=== PATIENT | female | born 1965 | race Hispanic/Latino ===

== ENCOUNTER 2024-05-26 15:39 | Inpatient (IN) | payer SELFPAY ==
[~2024-05-26 15:39] MED LIST: Iopamidol-370 76% 500 ML MDV (1 ML CHARGE) ONE
[2024-05-26 16:40] LABS: #Basophils 0.04 10x3/uL (0.0-0.2); %Basophils 0.6 % (0.0-1.0); %Eosinophils 0.9 % (0.0-10.0); %Lymphocytes 23.1 % (21.0-51.0); %Monocytes 8.7 % (0.0-10.0); %Neutrophils 66.4 % (42.0-75.0); Hematocrit 45.3 % (36.0-47.0); Hemoglobin 14.5 g/dL (12.0-16.0); Mean Corpuscular Hemoglobin 29.5 pg (27.0-31.0); Mean Corpuscular Volume 92.3 fL (78.0-98.0); Mean Platelet Volume 11.2 fL (7.4-10.4); Platelet Count 275 10x3/uL (130-400); RBC Distribution Width 14.6 % (11.5-14.5); Red Blood Cell (RBC) Count 4.91 mill/uL (4.20-5.40)
[2024-05-26 17:05] LABS: ALT (SGPT) 810 U/L (8-55); AST (SGOT) 473 U/L (5-34); Albumin 3.7 g/dL (3.5-5.0); Alkaline Phosphatase 241 U/L (40-110); Anion Gap 13 mmol/L (10-20); BUN (Urea Nitrogen) 15 mg/dL (9.8-20.1); Bilirubin, Total 2.4 mg/dL (0.2-1.2); Calc. Creatinine Clearance 0 mL/min (70-130); Calcium 10.4 mg/dL (7.8-10.44); Carbon Dioxide 25 mmol/L (22-29); Chloride 107 mmol/L (98-107); Estimated GFR 85; Globulin 5.3 g/dL (2.4-3.5); Glucose 121 mg/dL (70-105); Lipase 67 U/L (8-78); Potassium 3.8 mmol/L (3.5-5.1); Sodium 141 mmol/L (136-145)
[2024-05-26 17:11] LABS: Troponin I Less than 0.010 ng/mL (< 0.028)
[2024-05-26] MEDS ORDERED: Acetaminophen 325 MG TAB PO PRN (18:39)
[2024-05-26] MEDS ORDERED: Ondansetron PF 4 MG/2 ML Vial IVP PRN (18:39)
[2024-05-26] MEDS ORDERED: Ipratropium/Albuterol 3 ML NEB NEB PRN (18:39)
[2024-05-26] MEDS ORDERED: Piperacillin/Tazobactam 4.5 GM VIAL ONE (18:56)
[2024-05-26] MEDS ORDERED: Sodium Chloride 0.9% 100 ML ONE (18:56)
[2024-05-26 20:33] VITALS: BMI 28.6
[2024-05-26] MEDS: Sodium Chloride 0.9% 1,000 ML IV SCH (22:55)
[2024-05-26] MEDS: Ketorolac Tromethamine 30 MG (1 mL) VIAL IVP SCH (23:02)
[2024-05-26] MEDS: Famotidine/PF 20 mg/2ml Vial SLOW IVP SCH (23:03)
[2024-05-27] MEDS: Piperacillin/Tazobactam 3.375 GM in Sodium Chloride 0.9% 100 ML IVPB SCH (01:24)
[2024-05-27 05:04] LABS: #Basophils 0.03 10x3/uL (0.0-0.2); %Basophils 0.6 % (0.0-1.0); %Eosinophils 1.8 % (0.0-10.0); %Lymphocytes 41.3 % (21.0-51.0); %Monocytes 10.7 % (0.0-10.0); %Neutrophils 45.4 % (42.0-75.0); Hematocrit 39.6 % (36.0-47.0); Hemoglobin 12.6 g/dL (12.0-16.0); Mean Corpuscular HGB CONC 31.8 g/dL (32.0-36.0); Mean Corpuscular Hemoglobin 29.5 pg (27.0-31.0); Mean Corpuscular Volume 92.7 fL (78.0-98.0); Platelet Count 230 10x3/uL (130-400); RBC Distribution Width 14.7 % (11.5-14.5); Red Blood Cell (RBC) Count 4.27 mill/uL (4.20-5.40)
[2024-05-27 05:36] LABS: ALT (SGPT) 784 U/L (8-55); AST (SGOT) 453 U/L (5-34); Alkaline Phosphatase 220 U/L (40-110); Anion Gap 10 mmol/L (10-20); BUN (Urea Nitrogen) 12 mg/dL (9.8-20.1); Bilirubin, Total 1.9 mg/dL (0.2-1.2); Calc. Creatinine Clearance 91 mL/min (70-130); Calcium 9.1 mg/dL (7.8-10.44); Carbon Dioxide 24 mmol/L (22-29); Chloride 110 mmol/L (98-107); Estimated GFR 92; Glucose 109 mg/dL (70-105); Potassium 3.2 mmol/L (3.5-5.1); Protein, Total 7.4 g/dL (6.0-8.3); Sodium 141 mmol/L (136-145)
[2024-05-27 05:39] LABS: Prothrombin Time 13.4 sec (12.0-14.7)
[2024-05-27 05:40] LABS: PTT 23.8 sec (22.9-36.1)
[2024-05-27] MEDS: Ketorolac Tromethamine 30 MG (1 mL) VIAL IVP SCH (05:50)
[2024-05-27] MEDS: Potassium Chloride 20 MEQ in Premix 1 BAG IVPB SCH (13:37)
[2024-05-28 04:52] VITALS: TEMP 98.3
[2024-05-28 05:31] LABS: #Basophils 0.04 10x3/uL (0.0-0.2); %Basophils 0.7 % (0.0-1.0); %Eosinophils 3.5 % (0.0-10.0); %Lymphocytes 42.9 % (21.0-51.0); %Monocytes 9.1 % (0.0-10.0); %Neutrophils 43.4 % (42.0-75.0); Hematocrit 40.7 % (36.0-47.0); Hemoglobin 13.2 g/dL (12.0-16.0); Mean Corpuscular HGB CONC 32.4 g/dL (32.0-36.0); Mean Corpuscular Hemoglobin 29.3 pg (27.0-31.0); Mean Corpuscular Volume 90.4 fL (78.0-98.0); Mean Platelet Volume 11.1 fL (7.4-10.4); Platelet Count 239 10x3/uL (130-400); RBC Distribution Width 14.8 % (11.5-14.5)
[2024-05-28 05:47] LABS: ALT (SGPT) 571 U/L (8-55); AST (SGOT) 186 U/L (5-34); Albumin 3.1 g/dL (3.5-5.0); Alkaline Phosphatase 199 U/L (40-110); Anion Gap 12 mmol/L (10-20); BUN (Urea Nitrogen) 7 mg/dL (9.8-20.1); Bilirubin, Total 1.3 mg/dL (0.2-1.2); Calc. Creatinine Clearance 88 mL/min (70-130); Calcium 9.2 mg/dL (7.8-10.44); Carbon Dioxide 22 mmol/L (22-29); Chloride 110 mmol/L (98-107); Estimated GFR 89; Globulin 4.4 g/dL (2.4-3.5); Glucose 105 mg/dL (70-105); Potassium 3.6 mmol/L (3.5-5.1); Protein, Total 7.5 g/dL (6.0-8.3); Sodium 140 mmol/L (136-145)
[2024-05-28] MEDS ORDERED: Indocyanine Green 25 MG/10 ML VIAL IVP SCH (06:00)
[2024-05-28] MEDS ORDERED: Ondansetron PF 4 MG/2 ML Vial ONE (07:20)
[2024-05-28] MEDS ORDERED: Dexamethasone 4 mg/ml Vial ONE (07:20)
[2024-05-28] MEDS ORDERED: Lidocaine 2% PF 5 ML VIAL ONE (07:20)
[2024-05-28] MEDS ORDERED: Rocuronium Bromide 10 MG/ML (10ML VIAL) ONE (07:20)
[2024-05-28] MEDS ORDERED: fentaNYL PF 100 MCG/2 ML SYRINGE ONE (07:21)
[2024-05-28] MEDS ORDERED: PROPOFOL 20 ML ONE (07:21)
[2024-05-28] MEDS ORDERED: Indocyanine Green 25 MG/10 ML VIAL ONE (07:36)
[2024-05-28] MEDS ORDERED: Bupivacaine 0.25% HCL 30 ML VIAL ONE (07:37)
[2024-05-28] MEDS ORDERED: EPINEPHrine 1 MG/ML VIAL ONE (07:37)
[2024-05-28] MEDS ORDERED: Midazolam HCl 2 mg/2 ml Vial ONE (08:19)
[2024-05-28] MEDS ORDERED: fentaNYL 50 mcg/mL 1 mL Vial ONE (08:54)
[2024-05-28] MEDS ORDERED: SUGAMMADEX SODIUM 200 MG/2 ML VIAL ONE (09:04)
[2024-05-28] MEDS ORDERED: Glucagon 1 MG/ML KIT IM PRN (09:55)
[2024-05-28] MEDS ORDERED: Promethazine HCl 25 MG/ML VIAL IM PRN (09:55)
[2024-05-28] MEDS ORDERED: Dextrose 5% in Water 1,000 ML IV PRN (09:55)
[2024-05-28] MEDS ORDERED: Ondansetron PF 4 MG/2 ML Vial IVP PRN (09:55)
[2024-05-28] MEDS ORDERED: Dextrose 50% Abboject 50 ML SYRINGE SLOW IVP PRN (09:55)
[2024-05-28] MEDS ORDERED: HYDROcodone/Acetaminophen 10/325 mg Tablet PO PRN (09:55)
[2024-05-28] MEDS ORDERED: hydrALAZINE 20 MG/ML VIAL ONE (10:05)
[2024-05-28] MEDS: D5 1/2 NS w/20 mEq KCL 1,000 ML IV SCH (11:09)
[2024-05-28 17:44] VITALS: BP 127/78
[2024-05-28] MEDS ORDERED: Docusate 100 MG CAP PO SCH (21:00)
[2024-05-28] MEDS ORDERED: Famotidine 20 MG TAB PO SCH (21:00)
[2024-05-28] MEDS ORDERED: Famotidine/PF 20 mg/2ml Vial SLOW IVP SCH (21:00)
[2024-05-29] MEDS ORDERED: Enoxaparin 40 MG (0.4 mL) SYRINGE SC SCH (09:00)
== END 2024-05-28 18:43 | disposition home or self-care (01) | DRG 419 ==
LOC: ERS 15:39 → SURG B 18:42
PROVIDERS: ADMIT Surgery; ATTEND Surgery
PROC: 0FT44ZZ Resection of Gallbladder, Percutaneous Endoscopic Approach (ICD-10-PCS; principal; 2024-05-28)
PROC: 8E0W4CZ Robotic Assisted Procedure of Trunk Region, Percutaneous Endoscopic Approach (ICD-10-PCS; 2024-05-28)
PROC: 4A1BXSH Monitoring of Gastrointestinal Vascular Perfusion using Indocyanine Green Dye, External Approach (ICD-10-PCS; 2024-05-28)
DX: K81.0 Acute cholecystitis (principal); E66.9 Obesity, unspecified; Z68.28 Body mass index [BMI] 28.0-28.9, adult
CPT/HCPCS: 36415; 74177; 74181; 76376; 76705; 80048; 80053; 80076; 83690; 84484; 85025; 85610; 85730; 86850; 86900; 86901; 93005; 93010; 96374; C1889; J0171; J0360; J0665; J1100; J1885; J2001; J2250; J2405; J2543; J2704; J3010; J3480; J3490; J7030; Q9967